=== PATIENT | male | born 1945 | race African-American/Black ===

== ENCOUNTER 2019-01-04 21:13 | Observation (INO) ==
[2019-01-05] MEDS ORDERED: ONDANSETRON 4 MG/2 ML VIAL IV PRN (01:55)
[2019-01-05] MEDS ORDERED: ACETAMINOPHEN 325 MG TABLET PO PRN (01:55)
[2019-01-05] MEDS ORDERED: DEXTROSE 50% 25 GM/50 ML VIAL IV PRN (02:02)
[2019-01-05] MEDS ORDERED: GLUCAGON 1 MG VIAL IM PRN (02:02)
[2019-01-05 07:06] LABS: Risk Ratio 4.97; VLDL CHOLESTEROL 27.6 MG/DL
[2019-01-05 08:45] LABS: Calcium 8.3 MG/DL (8.5-10.1); Osmolality,Calculated 293.7 MOS/KG (273-304)
[2019-01-05 08:52] LABS: Basophils # 0.1 10*3/uL (0.0-0.2); Basophils % 0.7 % (0.0-0.8); Eosinophils # 0.3 10*3/uL (0.0-0.87); Eosinophils % 4.1 % (0.00-10.9); Hematocrit 44.8 VOL% (42.0-52.0); Hemoglobin 13.6 GM/DL (14.0-18.0); Immature Granulocytes % 0.3 %; Immature Granulocytes Absolute 0.02 #; Lymphocytes # 1.1 10*3/uL (1.4-4.0); Lymphocytes % 15.3 % (21.2-54.2); Mean Corpuscular HGB Conc 30.4 GM/DL (32-36); Mean Corpuscular Volume 98.7 FL (87-102); Mean Platelet Volume 10.7 FL (9.6-12.0); Monocytes % 8.3 % (1.7-12.7); Neutrophils % 71.3 % (38.7-73.9); Platelet Count 221 T/CUMM (130-400); Red Blood Count 4.54 MC/CUMM (3.8-5.5); Red Cell Distribution Width 13.1 % (9.3-17.3); White Blood Count 7.1 T/CUMM (4-12)
[2019-01-05] MEDS ORDERED: DILTIAZEM CD 300 MG CAPSULE PO SCH (09:00)
[2019-01-05] MEDS ORDERED: NEBIVOLOL 10 MG TABLET PO SCH (09:00)
[2019-01-05] MEDS ORDERED: hydroCHLOROthiazide 25 MG TABLET PO SCH (09:00)
[2019-01-05] MEDS ORDERED: APIXABAN 5 MG TABLET PO SCH (09:00)
[2019-01-05] MEDS ORDERED: ATORVASTATIN 80 MG TABLET PO SCH (09:00)
[2019-01-05] MEDS ORDERED: ASPIRIN EC 81 MG TABLET PO SCH (09:00)
[2019-01-05] MEDS ORDERED: MEMANTINE 10 MG TABLET PO SCH (09:00)
[2019-01-05] MEDS ORDERED: PANTOPRAZOLE 40 MG TABLET PO SCH (09:00)
[2019-01-05] MEDS ORDERED: DILTIAZEM CD 120 MG CAPSULE PO SCH (09:00)
[2019-01-05] MEDS: INSULIN REGULAR 100 UNIT/ML SUBCUT SCH ×3 (09:12→15:52)
[2019-01-05 09:13] LABS: CKMB % 1.7 %; Troponin I 0.051 NG/ML (0.00-0.045)
[2019-01-05 11:58] LABS: CKMB % 1.8 %; Troponin I 0.029 NG/ML (0.00-0.045)
[2019-01-05 12:20] VITALS: BP 140/72
[2019-01-05 15:00] LABS: CKMB % 1.8 %; Troponin I 0.02 NG/ML (0.00-0.045)
[2019-01-05] MEDS ORDERED: EZETIMIBE 10 MG TABLET PO SCH (21:00)
[2019-01-06] MEDS ORDERED: DILTIAZEM CD 240 MG CAPSULE PO SCH (09:00)
[2019-01-06] MEDS ORDERED: NEBIVOLOL 10 MG TABLET PO SCH (09:00)
== END 2019-01-05 16:02 | disposition home or self-care (01) ==
LOC: N.TELES → SUATTDRO 22:43
PROVIDERS: ADMIT Internal Medicine; ATTEND Internal Medicine Nephrology